=== PATIENT | male | born 2005 | race Caucasian/White ===

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

== ENCOUNTER 2023-04-21 08:39 | Emergency (ER) | payer BC, SELFPAY ==
[2023-04-21 08:52] VITALS: BP 126/95; PULSE 80; RESP 18; TEMP 36.7; O2SAT 97; BMI 23.1
--- NOTE | 2023-04-21 09:22 | PC.NURSE ---
When asked about thoughts of suicide pt stated I just want this to go away. Referring to feelings of increased anxiety. Pt states he has thought about suicide but no plan, currently denies feeling suicidal. Father at bedside. Pt states he has had thoughts in the past, but that was a long time ago. History of seeing counselor/psychiatry but not recently.
--- NOTE | 2023-04-21 10:07 | ED_ITS ---
HPI - General Adult General Date Seen: 04/21/23 Chief complaint: Psychiatric Problem/Disorder Stated complaint: Mental health Time Seen by Provider: 04/21/23 10:05 History of Present Illness HPI narrative: 17-year-old male with a history of depression, ADHD, adjustment disorder with mixed anxiety and depression, allergies, migraine headaches. He presents to the ER today for evaluation for feeling unwell. He does have history of depression, anxiety, and a previous history of even feeling suicidal. He is on Lexapro for that. He says he has been doing really well from mental health standpoint for the past few months. He is not really sure why but he has been doing well. He does use ?magic mushrooms? with his friends once in a while, perhaps every few months. He normally lives in [place] but was at home this weekend visiting his family. On Friday he was with his friends and they were using ?magic mushrooms? at about 2:00 p.m. on Friday, about 43 hours prior to arrival. No other substances. No other drugs. No alcohol. He recalls that this was a very intense Trip. His most intense trip that he has ever had. He says ?I was not ready for it. ? Since then he has just not been feeling right. He has been having waves of anxiety, palpitations, chest discomfort, and worry. He just does not feel good. He has had poor appetite. No nausea or vomiting. No diarrhea. No headache. He is feeling anxious and unable to focus since taking the mushrooms. Sometimes feeling shaky and chest pressure, sometimes having blurry vision. He is not depressed or suicidal. He just does not like the way he feels. He says he will not take ?magic mushrooms anymore.. Related Data Previous Rx's Medication Instructions Recorded dextroamphetamine-amphetamine ER 20 mg (2 x 10 mg) PO QDAY #60 caps 01/02/23 10 mg 24hr capsule,extend release escitalopram oxalate 20 mg tablet 20 mg PO QDAY #90 tabs 03/19/23 lorazepam 1 mg tablet (Ativan) 1 mg PO TID PRN #7 tabs 04/21/23 Allergies Allergy/AdvReac Type Severity Reaction Status Date / Time No Known Allergies Allergy Verified 09/05/22 10:31 [facility] Medical History Overweight ?E66.3 - Overweight (ICD-10) Migraine (03/12/12) ?G43.909 - Migraine, unspecified, not intractable, without status migrainosus (ICD-10) Concussion ?S06.0X9A - Concussion with loss of consciousness of unspecified duration, initial encounter (ICD-10) Adolescent depression ?F32.A - Depression, unspecified (ICD-10) Social History Smoking Status: Never smoker Do you use any of these nicotine containing products: None Second hand tobacco smoke exposure: No How often do you have a drink containing alcohol: never AUDIT-C Alcohol total score: 0 Non-prescribed substance use: denies use and other Non-prescribed substance use details: magic mushrooms Little interest or pleasure in doing things: several days Feeling down, depressed, or hopeless: several days service: No Exam Narrative: Exam Narrative: Constitutional: Appears well-developed and well-nourished. Alert. Conversant but sometimes a bit vague about his symptoms. Father is attentively this side.. Overall patient is polite and Non toxic. HENT: Head: Atraumatic. Nose: Nose normal. Mouth/Throat: Oral mucosa is clear and moist. no trismus. Pharynx normal. Tonsils symmetric. No tonsillar enlargement, erythema, or exudate. Eyes: Conjunctivae normal. EOM normal. Pupils equal, round, and reactive to light. No scleral icterus. Neck: Normal range of motion. Neck supple. No tracheal deviation present. Cardiovascular: Normal rate, regular rhythm. No gallop. No friction rub. No murmur heard. Symmetric radial artery pulses Pulmonary/Chest: Effort normal. No stridor. No respiratory distress. No wheezes. No rales. No rhonchi . No tenderness. Abdominal: Soft. Bowel sounds normal. No distension. No mass. No tenderness. No rebound. No guarding. Musculoskeletal: RUE: Normal range of motion. No tenderness. No deformity LUE: Normal range of motion. No tenderness. No deformity RLE: Normal range of motion. No edema. No tenderness. No deformity LLE: Normal range of motion. No edema. No tenderness. No deformity Lymph: No cervical adenopathy. Neurological: Alert and oriented to person, place, and time. Normal strength. CN II-VII intact. No sensory deficit. GCS eye subscore is 4. GCS verbal subscore is 5. GCS motor subscore is 6. Normal coordination Skin: Skin is warm and dry. No rash noted. No pallor. Normal capillary refill. Psychiatric: Somewhat flat affect as an to the room. Vague about his symptoms and just says he does not feel good. I am able to talk to him and get him to open up. It sounds like he had been doing pretty well from mental health standpoint for the past several months. No recent significant depression or anxiety. He is on Lexapro. He does not really know why he has been doing very good, but he certainly been doing well. He took magic mushrooms on Friday, to have fun, with his friends. He has never had a reaction like this before. The drip was much more intense than previously. He is just feeling unwell since then. He has had sometimes blurry vision, sometimes feeling anxious, sometimes up racing feeling in his chest. He just does not feel good. He has had low energy. He was not taking mushrooms attempt to harm self. He is not really feeling depressed or suicidal. He does does not feel good since he took mushrooms. Const: Vital Signs, click to edit/add: Vital Signs - 24 hr 04/21/23 08:52 04/21/23 11:46 04/21/23 14:37 Temperature 98.0 F 98.0 F 99.5 F Pulse Rate [Pulse Oximeter] 80 78 83 Respiratory Rate 18 18 18 Blood Pressure [Ri ght Upper Arm] 126/95 H 115/76 113/67 Pulse Oximetry 97 98 97 Oxygen Delivery Me thod Room Air Room Air Room Air Course Course ED Course: Discussed with [place] [facility]. They advised that most likely this is just after affects from ?magic mushrooms and supportive care with benzos would be indicated. They do note that there has been a slight rise lately in Amania muscarina usage which can cause GI side effects and liver damage. The poison Center and and I agree that that possibility is unlikely but it would be reasonable to check liver function tests just to be sure there is no sign of hepatotoxicity. Vital Signs Vital signs: Initial Vital Signs Temperature 98.0 F 04/21/23 08:52 Temperature Source Temporal Artery Scan 04/21/23 08:52 Pulse Rate 80 04/21/23 08:52 Pulse Rhythm Regular 04/21/23 08:52 Respiratory Rate 18 04/21/23 08:52 Blood Pressure 126/95 H 04/21/23 08:52 Blood Pressure Mean 105 04/21/23 08:52 Blood Pressure Position Supine 04/21/23 08:52 Pulse Oximetry 97 04/21/23 08:52 Oxygen Delivery Method Room Air 04/21/23 08:52 Vital Signs Temperature 98.0 F 04/21/23 08:52 Pulse Rate 80 04/21/23 08:52 Respiratory Rate 18 04/21/23 08:52 Blood Pressure 126/95 H 04/21/23 08:52 Pulse Oximetry 97 04/21/23 08:52 Oxygen Delivery Method Room Air 04/21/23 08:52 Temperature 99.5 F 04/21/23 14:37 Pulse Rate 83 04/21/23 14:37 Respiratory Rate 18 04/21/23 14:37 Blood Pressure 113/67 04/21/23 14:37 Pulse Oximetry 97 04/21/23 14:37 Oxygen Delivery Method Room Air 04/21/23 14:37 Medications Administered Medications: Discontinued Medications Generic Name Dose Route Start Last Admin Trade Name Freq PRN Reason Stop Dose Admin Lorazepam 1 mg 04/21/23 11:08 04/21/23 10:40 Lorazepam 1 Mg Tablet PO 04/21/23 11:09 1 mg ONCE ONE Administration Medical Decision Making MDM Narrative Medical decision making narrative: This is a 17-year-old male presenting to the ER today with his father with concern that he just does not feel well and has been a bit restless, and anhedonic after taking magic mushrooms 2 days ago. He denies any other coingestion such as drugs, alcohol. He does have a pre- existing history of depression anxiety but says that has been very well controlled for the past many months. Here in the ER he is hemodynamically stable but says he does not feel well. We administered Ativan for anxiety and worry and he felt perhaps slightly better. He said he just did not feel like eating and drinking but with encouragement he was able to drink some water. He did not want to eat any solids. Suspect that his symptoms are likely related to his recent magic mushroom ingestion, however typically half life for magic mushrooms would be a few hours, not days. Discussed with [place] [facility]. They agree that likely this is simply after effects from the med mushrooms and they will get better with time. However poison center is concerned about possible inadvertent ingestion of the rhonchi to magic mushrooms. If he took am amanita that could lead to significant vomiting, diarrhea, and liver toxicity. Patient does have a history of magic mushroom use in the past so it seems highly likely that he did not take dony. However we did check metabolic profile to look at LFTs. Transaminases are mildly abnormal, and changed compared to last September. Discussed again with [facility]. They feel that these transaminase elevations are trivial it would not reflect hepatotoxicity from mushroom ingestion. We decided to monitor here in the ER and repeat LFTs. Repeat LFTs are stable to slightly improving. This would suggest that there was no significant hepatotoxicity. No need for hospitalization at this time. Discharge home with his father for supportive care. Precautions for return to the ER reviewed. Prescriptions for Ativan provided. Benzodiazepine precautions reviewed. Lab Data Labs: Lab Results 04/21/23 04/21/23 Range/Units 10:52 14:18 Sodium 136 138 (135-149) mmol/L Potassium 4.4 4.0 (3.6-5.1) mmol/L Chloride 106 102 (96-114) mmol/L Carbon Dioxide 20 25 (20-32) mmol/L Anion Gap 10 11 (7-15) mEq/L BUN 11 10 (5-24) mg/dL Creatinine 0.7 0.8 (0.6-1.2) mg/dL Estimated Creat Clear 196.02 171.52 Estimated GFR 136 131 ml/min Glucose 91 95 (60-115) mg/dL Calcium 9.8 9.6 (8.7-10.8) mg/dL Total Bilirubin 1.5 1.4 (0.1-1.5) mg/dL AST 37 H 35 (12-35) U/L ALT 54 H 55 H (4-50) U/L Alkaline Phosphatase 69 65 (65-260) U/L Total Protein 7.5 7.8 (6.0-8.3) g/dL Albumin 5.1 H 5.1 H (3.3-5.0) g/dL ECG Data Attestation: I personally reviewed and interpreted this ECG as follows: Interpretation: Normal sinus rhythm rate. Seventy-nine. SC 130. QRS axis normal axis. No pathologic Q-waves. ST segment/T wave: No ST segment elevation or depression. QTc: 438 Discharge Plan Discharge Clinical Impression: Hallucinogenic mushrooms use disorder, mild Patient Disposition: Home, Self-Care Condition: Stable Instructions: Polysubstance Use Disorder (ED) Additional Instructions: As we discussed, we suspect that your symptoms are driven by after affects from the mushrooms you took. This may take a few more days to get better. Please be sure to drink plenty fluids and eat enough food to keep her body healthy. If you have worsening symptoms especially worsening nausea, jaundice, abdominal pain, or more episodes of racing heart or chest pain, please come back to the ER right away. Use Ativan if needed for anxiety. Use caution with Ativan because it can cause drowsiness and can be addictive. Prescriptions: New lorazepam [Ativan] 1 mg tablet 1 mg PO TID PRNQty: 7 0RF No Action dextroamphetamine-amphetamine 10 mg capsule,extended release 24hr 20 mg PO QDAY Qty: 60 0RF escitalopram oxalate 20 mg tablet 20 mg PO QDAY Qty: 90 0RF Follow Up/Referrals: Dex Delgado MD [Primary Care Provider] - Stand Alone Forms: [facility] Info Instructions
--- NOTE | 2023-04-21 10:15 | PC.NURSE ---
Physician at bedside. Father also in room.
[2023-04-21] MEDS: LORazepam 1 MG TABLET PO (10:40)
[2023-04-21 11:10] LABS: Albumin* 5.1 g/dL (3.3-5.0); Chloride* 106 mmol/L (96-114); Potassium* 4.4 mmol/L (3.6-5.1); Sodium* 136 mmol/L (135-149)
[2023-04-21 11:12] LABS: Creatinine* 0.7 mg/dL (0.6-1.2); Est. Creatinine Clearance* 196.02; Estimated Glomerular Filt Rate 136 ml/min
[2023-04-21 11:13] LABS: Alanine Aminotransferase* 54 U/L (4-50); Alkaline Phosphatase* 69 U/L (65-260); Anion Gap 10 mEq/L (7-15); Aspartate Amino Transferase* 37 U/L (12-35); Bilirubin Total* 1.5 mg/dL (0.1-1.5); Blood Urea Nitrogen* 11 mg/dL (5-24); Calcium* 9.8 mg/dL (8.7-10.8); Carbon Dioxide* 20 mmol/L (20-32); Glucose* 91 mg/dL (60-115); Total Protein* 7.5 g/dL (6.0-8.3)
[2023-04-21 11:46] VITALS: BP 115/76; PULSE 78; RESP 18; TEMP 36.7; O2SAT 98
--- NOTE | 2023-04-21 11:47 | PC.NURSE ---
Pt drinking juice and water, eating sandwich. States feeling a little less anxious.
--- NOTE | 2023-04-21 12:25 | PC.NURSE ---
Encourage pt to drink fluids, more water and juice given. sandwich in room.
[2023-04-21 14:37] VITALS: BP 113/67; PULSE 83; RESP 18; TEMP 37.5; O2SAT 97
[2023-04-21 14:46] LABS: Albumin* 5.1 g/dL (3.3-5.0); Chloride* 102 mmol/L (96-114); Sodium* 138 mmol/L (135-149)
[2023-04-21 14:49] LABS: Alanine Aminotransferase* 55 U/L (4-50); Alkaline Phosphatase* 65 U/L (65-260); Anion Gap 11 mEq/L (7-15); Aspartate Amino Transferase* 35 U/L (12-35); Bilirubin Total* 1.4 mg/dL (0.1-1.5); Blood Urea Nitrogen* 10 mg/dL (5-24); Carbon Dioxide* 25 mmol/L (20-32); Creatinine* 0.8 mg/dL (0.6-1.2); Est. Creatinine Clearance* 171.52; Estimated Glomerular Filt Rate 131 ml/min; Glucose* 95 mg/dL (60-115); Total Protein* 7.8 g/dL (6.0-8.3)
[2023-04-21 14:50] LABS: Calcium* 9.6 mg/dL (8.7-10.8)
== END 2023-04-21 15:35 | disposition home or self-care (01) ==
PROVIDERS: Emergency Provider Emergency Medicine; PCP Family Medicine
DX: F16.10 Hallucinogen abuse, uncomplicated (principal); T62.0X1A Toxic effect of ingested mushrooms, accidental (unintentional), initial encounter
CPT/HCPCS: 36415; 80053; 93005; 99283; 99284; A9270

== ENCOUNTER 2025-03-03 21:35 | Emergency (ER) | payer OTHER, SELFPAY ==
--- OUTSIDE RECORDS SUMMARY | 2025-01-30 21:38 | XMS_ITS | Encounter Summary ---
Author Organization [facility] Address [address] [place] [address] Care Team Providers Care All Round Butcher Name Role Phone None Reported, Pcp Primary Care Provider Unavail able Reason for Visit * ReasonCommentsPalpitationsPalpitations, shaky, weak and difficulty focusing x 1 hour. Similar episodes in the past but never lasting this long. Encounter Details DateTypeDepartmentCare Team (Latest Contact Info)Goksvwftrww29/23/2025 9:38 PM BUILDING EQUIPMENT OPERATOR - 01/30/2025 11:16 PM [facility]STEmer[facility] [address] [place] [address] Jett Garza M.D., M.S. [address] [place] [phone] Palpitations (Primary Dx); Tremor Discharge Disposition: Home or Self Care Social History Tobacco UseTypesPacks/DayYears UsedDateSmoking Tobacco: Never Tobacco Cessation:Counseling Given: Not Answered Alcohol UseStandard Drinks/WeekCommentsYes6 (1 standard drink = 0.6 oz pure alcohol)Sex and Gender InformationValueDate RecordedSex Assigned at BirthNot on fileLegal BzzMndi8104/12/2016 11:25 AM CSTGender IdentityNot on fileSexual OrientationNot on filedocumented as of this encounter Last Filed Vital Signs Vital SignReadingTime TakenCommentsBlood Eomppxno541/8501/30/2025 11:00 PM BUILDING EQUIPMENT OPERATOR Hlfii089101/30/2025 11:00 PM OTCLnvkkdkdtah50.2 ??C (97.2 ??F)01/30/2025 9:37 PM CSTRespiratory Wqwu645301/30/2025 11:00 PM CSTOxygen Ywytwukdlm36%01/30/2025 11:00 PM CSTInhaled Oxygen Concentration--Weight--Height--Body Mass Index--documented in this encounter Functional Status * Vital SignsQuestionAnswerDate of AssessmentAuthorRichmond Agitation Sedation Scale (RASS) 11:11 PM Niki Connor R.N. * ED Fall Risk Assessment ToolQuestionAnswerDate of AssessmentAuthorHistory of Falling in Last Three Months Including Since Zswbevxws135/23/2025 9:51 PM Niki Stout R.N.Confusion or Ximdlxftjyfrlb317/23/2025 9:51 PM Niki Connor R.N.Intoxicated or Zwverji940 9:51 PM Niki Connor R.N.Impaired Dniv325 9:51 PM Niki Connor R.N.Mobility Assist Device Vvad128 9:51 PM Niki Connor R.Rachel.Altered Elimination0 01/30/2025 9:51 PM Niki Connor R.N.Fall Risk Iachd282 9:51 PM Niki Connor R.N. * Abuse IndicatorsQuestionAnswerDate of AssessmentAuthorIs there a history, concern, or exposure to physical, emotional, sexual, financial abuse, neglect or domestic violence?No01/30/2025 9:50 PM Niki Connor R.N.Information PxyrkeCmulcqm66/23/2025 9:50 PM Niki Connor R.N. * Additional Fall Risk IndicationQuestionAnswerDate of AssessmentAuthor Clinically assessed at higher fall risk?01/30/2025 9:51 PM Niki Connor R.N. * Pain AssessmentQuestionAnswerDate of AssessmentAuthorPain Score0 - No pain 01/30/2025 9:38 PM Emily Fowler RCelesteN. * Fall Risk Scale and AssessmentsQuestionAnswerDate of AssessmentAuthorFall Risk ScaleED Fall Risk Assessment Tool01/30/2025 9:51 PM Niki Connor RCelesteN. documented as of this encounter Mental Status * [place] Coma ScaleQuestionAnswerEntry DateAuthorEye Ramcmza525/23/2025 10:45 PM Niki Connor, R.N.Best Motor Lwxdwdjt133/23/2025 10:45 PM Niki Connor R.N.Best Verbal Btixqekg296/23/2025 10:45 PM Niki Connor R.N.Nelsy Coma Scale Esyno3482/23/2025 10:45 PM Niki Connor R.N. documented in this encounter Discharge Instructions * Attachments The following attachments cannot be sent through Care Everywhere. * Trembling or Mild Shaking (Tremor): What It Means (Ugandan) * Palpitations Nguw-dx-Aywi (Ugandan) documented in this encounter ED Notes * Jett Garza M.D., M.S. - 01/30/2025 9:52 PM CST SUBJECTIVE CHIEF COMPLAINT/REASON FOR VISIT Palpitations (Palpitations, shaky, weak and difficulty focusing x 1 hour. Similar episodes in the past but never lasting this long.) HISTORY OF PRESENT ILLNESS 19-year-old male past medical history anxiety on Lexapro, presenting for palpitations, feeling tremulous, difficulty concentrating. He has had similar episodes in the past which he attributes to panic attacks. He feels like this feels similar in some aspects but also some aspects different. Did have a few minutes of chest pain midsternal that was very mild in nature when this 1st started but is now completely resolved. Currently denies any pain anywhere or any other symptoms besides still feeling shaky. He describes the palpitations as if his heart is more noticeably beating and a bit faster than usual. REVIEW OF SYSTEMS Per HPI otherwise negative OBJECTIVE Initial Vitals Temperature 01/30/25 2137 36.2 ??C Pulse Rate 01/30/252136 68 Heart Rate 01/30/252144 64 Resp Rate 01/30/252136 20 Blood Pressure 01/30/252136 (!) 144/92 SpO2 01/30/252136 100 % Pain Score 01/30/252137 0 - No pain PHYSICAL EXAMINATION HENT: Head: Normocephalic and atraumatic. Mouth/Throat: Oropharynx is clear and moist. Mucous membranes are moist. Eyes: Conjunctivae and EOM are normal. Neck: No tracheal deviation present. Cardiovascular: Regular rhythm, S1 normal, S2 normal and normal heart sounds. Pulmonary/Chest: Effort normal and breath sounds normal. There is normal air entry. No respiratory distress. He exhibits no retraction. Musculoskeletal: General: Normal range of motion. Cervical back: Normal range of motion. Neurological: Alert and oriented to person, place, and time. ASSESSMENT/PLAN 19-year-old male past medical history as above presenting for tremulousness and palpitations. Will screen for electrolyte abnormality, anemia, and thyroid dysfunction. Differential diagnosis also includes anxiety, will trial 1 mg p.o. Ativan to see if this improves his symptoms. Low suspicion for ACS, PE, myocarditis given currently pain-free. Still offered to obtain workup for these but patient declined given my low suspicion. 11:04 PM BUILDING EQUIPMENT OPERATOR Labs and tests are reassuring: - CBC without leukocytosis or anemia - BMP with normal kidney function, no significant electrolyte derangement - Liver enzymes without significant transaminitis or bilirubinemia - EKG without concerning ST elevation/depression, normal intervals, normal rhythm - TSH unremarkable Patient felt improved s/p Ativan. Recommended PCP f/u. ED Course as of 01/30/252303 Sun Jan 30, 20252234 Still feeling intermittently tremulous. Will give additional 1mg of Ativan. Final Diagnoses: as of 01/30/252303 Palpitations Tremor Jett Garza M.D., M.S. 01/30/252304 DING EQUIPMENT OPERATOR documented in this encounter Plan of Treatment Not on file documented as of this encounter Procedures Procedure NamePriorityDate/TimeAssociated DhcjclrcwHkhybunjQCJSBQL13/23/2025 10:44 PM BUILDING EQUIPMENT OPERATOR CBC WITH DIFFERENTIAL, BSTAT104/01/2024 9:56 PM BUILDING EQUIPMENT OPERATOR THYROID-STIMULATING HORMONE-SENSITIVE (S-TSH)STAT104/01/2024 9:56 PM BUILDING EQUIPMENT OPERATOR VENOUS BLOOD GAS W/COOX, BSTAT104/01/2024 9:56 PM BUILDING EQUIPMENT OPERATOR BASIC METABOLIC PANEL, S/PSTAT104/01/2024 9:56 PM BUILDING EQUIPMENT OPERATOR documented in this encounter Results * ECG 12 Lead (01/30/2025 10:44 PM BUILDING EQUIPMENT OPERATOR)ComponentValueRef RangeTest Method Analysis TimePerformed AtPathologist SignatureVentricular Rate ECG/Ktx29VDI MUSEPR Zpplseoz105rzWQKSPENK Otgxwdet666wgVYMYAZ Jqpnbjbj993etPKFFCSF Interval 392msMUSEP Kscf87neqasgbXUOPD Esej97uoacbmtBJOGB Wave Xnrr22ifgxueoWTIR Specimen (Source)Anatomical Location / LateralityCollection Method / Volume Collection TimeReceived Time01/30/2025 10:44 PM CST01/31/2025 8:02 AM BUILDING EQUIPMENT OPERATOR Impressions MUSE - 01/31/2025 8:02 AM BUILDING EQUIPMENT OPERATOR NORMAL SINUS RHYTHM NORMAL ECG NO PREVIOUS ECGS AVAILABLE Confirmed by Claudio Suazo ([id number]) on 01/31/2025 8:02:20 AM Narrative Procedure Note Claudio Suazo M.D. - 01/31/2025 IMPRESSION: NORMAL SINUS RHYTHM NORMAL ECG NO PREVIOUS ECGS AVAILABLE Confirmed by Claudio Suazo ([id number]) on 01/31/2025 8:02:20 AM Authorizing ProviderResult TypeResult StatusNatsue Garza M.D., M.S.ECG ORDERABLESFinal ResultPerforming OrganizationAddressCity/State/ZIP CodePhone Number MUSE NA * S-TSH (Thyroid-Stimulating Hormone - Sensitive) (01/30/2025 9:56 PM BUILDING EQUIPMENT OPERATOR) ComponentValueRef RangeTest MethodAnalysis TimePerformed AtPathologist SignatureTSH, Sensitive3.00.3 - 4.2 mIU/L104/01/2024 10:31 PM CSTECLRSpecimen (Source)Anatomical Location / LateralityCollection Method / VolumeCollection TimeReceived TimeBlood (Blood, Venous)01/30/2025 9:56 PM CST01/30/2025 10:01 PM BUILDING EQUIPMENT OPERATOR Narrative Authorizing ProviderResult TypeResult StatusNatsue Garza M.D., M.S.LAB BLOOD ADD-ONFinal ResultPerforming OrganizationAddressCity/State/ZIP CodePhone Number [facility] [address] [place] [phone], [facility] in [address] [address] * Basic Metabolic Panel (01/30/2025 9:56 PM BUILDING EQUIPMENT OPERATOR)ComponentValueRef RangeTest MethodAnalysis TimePerformed AtPathologist SignaturePotassium, P3.73.6 - 5.2 mmol/L104/01/2024 10:32 PM CSTECLRSodium, W158831 - 145 mmol/L104/01/2024 10:32 PM CSTECLRChloride, U42026 - 107 mmol/L104/01/2024 10:32 PM CSTECLRBicarbonate, P2422 - 29 mmol/L104/01/2024 10:32 PM CSTECLRAnion Gap, P137 - 15104/01/2024 10:32 PM CSTECLRBUN (Blood Urea Nitrogen), P98 - 24 mg/dL01/30/2025 10:32 PM CSTECLRCreatinine0.820.74 - 1.35 mg/dL01/30/2025 10:32 PM CSTECLREstimated GFR (eGFR)>90>=60 mL/min/BSA01/30/2025 10:32 PM CSTECLRComment: Estimated GFR calculated using the 2020 CKD_EPI creatinine equation. Calcium, Total, P9.88.6 - 10.0 mg/dL01/30/2025 10:32 PM CSTECLRGlucose, P9970 - 140 mg/dL01/30/2025 10:32 PM CSTECLRSpecimen (Source)Anatomical Location / LateralityCollection Method / VolumeCollection TimeReceived TimeBlood (Blood, Venous)01/30/2025 9:56 PM CST01/30/2025 10:01 PM BUILDING EQUIPMENT OPERATOR Narrative Authorizing ProviderResult TypeResult StatusNatsue Garza M.D., M.S.LAB BLOOD ADD-ONFinal ResultPerforming OrganizationAddressCity/State/ZIP CodePhone Number [facility] [address] [place] [phone], [facility] in [place] [address] [place] [phone] * CBC with Differential, Blood (01/30/2025 9:56 PM BUILDING EQUIPMENT OPERATOR)ComponentValueRef Range Test MethodAnalysis TimePerformed AtPathologist OhkpumycuZzrqsytajc79.813.2 - 16.6 g/dL01/30/2025 10:04 PM JGKZUARHxaikfiogj53.638.3 - 48.6 %01/30/2025 10:04 PM CSTECLRErythrocytes5.054.35 - 5.65 x10(12)/L104/01/2024 10:04 PM BUILDING EQUIPMENT OPERATOR XTIREMA08.378.2 - 97.9 fL01/30/2025 10:04 PM CSTECLRRBC Distrib Width12.511.8 - 14.5 %01/30/2025 10:04 PM CSTECLRPlatelet Rwvkf658312 - 317 x10(9)/L 01/30/2025 10:04 PM CSTECLRLeukocytes6.43.4 - 9.6 x10(9)/L104/01/2024 10:04 PM CSTECLRNeutrophils3.511.56 - 6.45 x10(9)/L104/01/2024 10:04 PM CSTECLR Lymphocytes1.820.95 - 3.07 x10(9)/L104/01/2024 10:04 PM CSTECLRMonocytes0.62 0.26 - 0.81 x10(9)/L104/01/2024 10:04 PM CSTECLREosinophils0.370.03 - 0.48 x10(9)/L104/01/2024 10:04 PM CSTECLRBasophils0.050.01 - 0.08 x10(9)/L104/01/2024 10:04 PM CSTECLRSpecimen (Source)Anatomical Location / LateralityCollection Method / VolumeCollection TimeReceived TimeBlood (Blood, Venous)01/30/2025 9:56 PM CST01/30/2025 10:01 PM BUILDING EQUIPMENT OPERATOR Narrative Authorizing ProviderResult TypeResult StatusNatsue Garza M.D., M.S.LAB BLOOD ADD-ONFinal ResultPerforming OrganizationAddressCity/State/ZIP CodePhone Number [facility] [address] [place] [phone], [facility] [address] * Blood Gas with Coox, Venous (01/30/2025 9:56 PM BUILDING EQUIPMENT OPERATOR)ComponentValueRef Range Test MethodAnalysis TimePerformed AtPathologist SignatureSample Site, Venous Oigyqusoo11/23/2025 10:03 PM CSTECLRpO2, Lchzyg45Rtm applicable mm Hg 01/30/2025 10:03 PM CSTECLRpCO2, Vigefm1092 - 51 mm Hg01/30/2025 10:03 PM BUILDING EQUIPMENT OPERATOR ECLRpH, Venous7.367.32 - 7.43 pH01/30/2025 10:03 PM CSTECLRBase Excess, Venous 2Not applicable mmol/L104/01/2024 10:03 PM CSTECLRHCO3, Yzcqyl44Vku applicable mmol/L104/01/2024 10:03 PM CSTECLRHemoglobin, Abjyel09.413.2 - 16.6 g/dL 01/30/2025 10:03 PM LFUQVOKC2Pk, Arhedc53.5Not applicable %01/30/2025 10:03 PM CSTECLRCOHb, Venous0.9<3.0 %01/30/2025 10:03 PM CSTECLRMetHb, Venous1.1<1.5 % 01/30/2025 10:03 PM CSTECLRCtO2, Zghzfx17.9Not Applicable vol %01/30/2025 10:03 PM CSTECLRSpecimen (Source)Anatomical Location / LateralityCollection Method / VolumeCollection TimeReceived TimeBlood (Blood, Venous)01/30/2025 9:56 PM CST01/30/2025 10:01 PM BUILDING EQUIPMENT OPERATOR Narrative Authorizing ProviderResult TypeResult StatusJett Garza M.D., M.S.LAB BLOOD NON ADD-ONFinal ResultPerforming OrganizationAddressCity/State/ZIP CodePhone Number [facility] [address] [place] [address], [facility] [place] [address] [place] [address] documented in this encounter Visit Diagnoses Diagnosis Palpitations- Primary Tremor documented in this encounter Administered Medications Medication OrderMAR ActionAction DateDoseRateSite LORazepam tablet 1 mg (Ativan) 1 mg, oral, Once, On 01/30/25 at 2151, For 1 dose Given01/30/2025 10:00 PM CST1 mg LORazepam tablet 1 mg (Ativan) 1 mg, oral, Once, On 01/30/25 at 2235, For 1 dose Given01/30/2025 10:40 PM CST1 mgdocumented in this encounter Active and Recently Administered Medications Times are shown in BUILDING EQUIPMENT OPERATOR.Medication Order// LORazepam tablet 1 mg (Ativan) (COMPLETED) 1 mg, oral, Once, On 01/30/25 at 2151, For 1 dose * 2200 (Given - Provider: Niki Matson R.N.) LORazepam tablet 1 mg (Ativan) (COMPLETED) 1 mg, oral, Once, On 01/30/25 at 2235, For 1 dose * 2240 (Given - Provider: Niki Matson R.N.) documented in this encounter Care Teams Team MemberRelationshipSpecialtyStart DateEnd Date None Reported, Pcp PCP - GeneralFamily Kdwlrluy20/23/25documented as of this encounter
--- OUTSIDE RECORDS SUMMARY | 2025-03-03 21:37 | XMS_ITS | Clinical Summary ---
Author Organization [facility] Address [address] [place] [address] Care Team Providers Care Market Risk Specialist Name Role Phone Unavailable Primary Care Provider Unavailabl e Source Comments You are receiving this document as you are listed as the primary care provider,follow-up provider, or the patient has been referred to you for consultation.This is in compliance with the Medicare andMedicaid EHR Incentive Program,which states Providers who transition their patient to another setting of careor provider of care or refers their patient to another provider of care shouldprovide summary care record for each transition of care or referral. [facility] Allergies No known active allergies Medications MedicationSigDispense QuantityRefillsLast FilledStart DateEnd DateStatus hydrOXYzine HCl (ATARAX) 25 MG tablet Take 1 Tablet (25 mg) by mouth every 6 hours as needed.5Active escitalopram oxalate (LEXAPRO) 20 MG tablet Take 1 Tablet (20 mg) by mouth.5Active Social History Tobacco UseTypesPacks/DayYears UsedDateSmoking Tobacco: Never Tobacco Cessation:Counseling Given: Not Answered Sex and Gender InformationValueDate RecordedSex Assigned at BirthNot on file Legal SkpTscv5605/02/2024 2:30 PM CSTGender IdentityNot on fileSexual Orientation Not on file Last Filed Vital Signs Vital SignReadingTime TakenCommentsBlood Slmftoqg514/8805/02/2024 3:14 PM PIT LABORER Zwcop8898/23/2025 3:14 PM MJVTulunzddygl37.6 ??C (97.9 ??F)05/02/2024 3:14 PM CSTRespiratory Pcxt1327/ 3:14 PM CSTOxygen Gcpiqgfzew59%05/02/2024 3:14 PM CSTInhaled Oxygen Concentration--Weight--Height--Body Mass Index-- Plan of Treatment Health MaintenanceDue DateLast DoneCommentsHep C Screening (Preventive Services) 2003MenB Immunization Rpawgfwylk41/16/2004HIV Screening (Preventive Services)2019MCV4 Vaccine (2 - 2-dose series)Adult Preventive Visit2021HepB Vaccine (1)3COVID-19 Vaccine ( season)2024Influenza Vaccine (#1)/08/2009, 02/17/2007, 02/27/2006, Additional history existsDTaP/Tdap/Td Vaccine (7 - Tdap)07/16/2025 07/17/2015, 07/18/2008, 07/23/2004, Additional history existsZoster/Shingles Vaccine (1 of 2)2053Hib TklzntdBddgmwrjy40/16/2005, 2003, 2003, Additional history existsPneumococcal VaccineAged Out07/23/2004, 2003, 2003, Additional history existsNo longer eligible based on patient's age to complete this topicHepA PvfidzaAiupvisjp48/11/2009, 02/17/2007 IPV (Polio) YqxkxjrRwijappot82/11/2009, 2003, 2003, Additional history existsHPV BlcowobAgtgzhiet63/22/2017, 07/17/2015 Insurance
--- OUTSIDE RECORDS SUMMARY | 2025-03-03 21:37 | XMS_ITS | Clinical Summary ---
Author Organization [facility] Address [address] [place] [address] Care Team Providers Care Recruiting Administrator Name Role Phone Dex Delgado MD Primary Care Provider [phone] Allergies No known active allergies Medications MedicationSigDispense QuantityRefillsLast FilledStart DateEnd DateStatus escitalopram oxalate (LEXAPRO) 20 mg tablet Indications:Anxiety,Depression, recurrentTake 1 Tablet (20 mg) by mouth once daily in the morning. 90 Tablet 5Active hydrOXYzine HCL (ATARAX) 25 mg tablet Indications:AnxietyTake 1 Tablet (25 mg) by mouth every 6 hours if needed for Anxiety. 50 Tablet 5Active hydrOXYzine HCL (ATARAX) 25 mg tablet Indications:AnxietyTake 1 Tablet (25 mg) by mouth every 6 hours if needed for Anxiety. 50 Tablet Discontinued escitalopram oxalate (LEXAPRO) 20 mg tablet Indications:Anxiety,Depression, recurrentTake 1 Tablet (20 mg) by mouth once daily in the morning. 30 Tablet Discontinued(Reorder (E-cancel not sent)) hydrOXYzine HCL (ATARAX) 25 mg tablet Indications:AnxietyTAKE 1 TABLET (25 MG) BY MOUTH EVERY 6 HOURS IF NEEDED FOR ANXIETY. 50 Tablet Discontinued(Reorder (E-cancel not sent)) Active Problems No known active problems Encounters DateTypeDepartmentCare DvaeDykarrpkgtc09/18/2025Refill [facility] [address] [place] [address] Ana Rey MD Refill Request (Hydroxyzine Hcl)02/16/2025 6:10 PM CSTTelemedicine [facility] [address] [place] [address] Ana Rey MD Medication Kxkbgswylx52/10/2025Travelfrom Last 3 Months Social History Tobacco UseTypesPacks/DayYears UsedDateSmoking Tobacco: NeverSmokeless Tobacco: Never Tobacco Cessation:Counseling Given: Not Answered Alcohol UseStandard Drinks/WeekCommentsNot Currently0 (1 standard drink = 0.6 oz pure alcohol)PHQ-2AnswerDate RecordedPHQ-2 TOTAL NKOLN001Social ConnectionsAnswerDate RecordedDo you often feel lonely or isolated from those around you?Financial Resource StrainAnswerDate RecordedDifficulty of Paying Living Jgkrqqpf095ifficulty of Paying Living ExpensesNot on file 08/15/2023Food InsecurityAnswerDate RecordedDo you worry your food will run out before you are able to buy more?Transportation NeedsAnswerDate RecordedDoes lack of transportation keep you from medical appointments?1 08/15/2023oes lack of transportation keep you from work, meetings or getting things that you need?Housing StabilityAnswerDate RecordedWhat is your housing situation today?UtilitiesAnswerDate RecordedDo you have trouble paying for utilities (for example, heat, electricity, water, phone)?1 08/15/2023Sex and Gender InformationValueDate RecordedSex Assigned at BirthNot on fileLegal JzjSmlx9404/28/2013 4:08 PM CSTGender IdentityNot on fileSexual OrientationNot on file Last Filed Vital Signs Vital SignReadingTime TakenCommentsBlood Riyixrer640/7206 1:35 PM CDT Intxs812308/15/2023 1:35 PM CDTTemperature--Respiratory Rate--Oxygen Sfnvuzrmgb64% 08/15/2023 1:35 PM CDTInhaled Oxygen Concentration--Pchvpb02.4 kg (190 lb 8 oz) 08/15/2023 1:35 PM CDTHeight--Body Mass Index-- Plan of Treatment Health MaintenanceDue DateLast DoneCommentsTetanus cyxugyv4804/25/2014HIV for age 15-65004/25/2018HPV series for age 9-45 (1 - Male 3-dose series)2018 Meningococcal series for age 11-21 (1 - 2-dose series)2019BMI (ht and wt on same day) for age 18+2021Hepatitis C screening for age 18-7904/25/2021 Hepatitis B series for 19+ (1 of 3 - 19+ 3-dose series)3Depression screening for age 12+4COVID-19 vaccine series ( - 2024- season)2024Influenza Vaccine (#1)2024Pneumococcal series for age 6-49Aged OutNo longer eligible based on patient's age to complete this topic Care Teams Team MemberRelationshipSpecialtyStart DateEnd Date Dex Delgado MD [address] [place] [phone] PCP - GeneralFamily Practice08/15/23
--- OUTSIDE RECORDS SUMMARY | 2025-03-03 21:37 | XMS_ITS | Clinical Summary ---
Author Organization [facility] Address [address] [place] [address] Care Team Providers Care Valet Runner Name Role Phone None Reported, Pcp Primary Care Provider Unavail able Source Comments Patient records contain information from all sites at [facility]. For routine questions regarding patient records, call [phone] during business hours, M-F 8:00 AM - 5:00 PM Central Time. Record requests for emergency care only can be directed to [phone] at any time.[facility] Allergies No known active allergies Medications * This document contains information received from the source organization and may not represent a complete record from that organization. MedicationSigDispense QuantityRefillsLast FilledStart DateEnd DateStatus escitalopram (Lexapro) 20 mg tablet Take 1 tablet (20 mg total) by mouth daily. 90 tablet 11:36 AM CST5Active Encounters DateTypeDepartmentCare HkfcLjtufxenchm67/23/2025 9:38 PM BERRY PICKER MACHINE OPERATOR - 01/30/2025 11:16 PM [facility]mer[facility] [place] [address] Jett Garza M.D., M.S. Palpitations (Primary Dx); Tremor Discharge Disposition: Home or Self Carefrom Last 3 Months Immunizations ImmunizationAdministration DatesNext DueDTaP (Daptacel)07/23/2004DTaP / Hep B / IPV (Pediarix)2003,2003,2003DTaP-IPV07/18/2008HepA, Fgudcmgqgyu28/11/2009,02/17/2007Hib (PRP-T) (ACTHIB, HIBERIX)07/23/2004, 2003,2003,2003Influenza Split02/17/2007,02/27/2006,05/08/2005, 01/31/2004,2003MMR07/18/2008,04/27/2004PCV7 (discontinued)07/23/2004, 2003,2003,2003VAR07/18/2008,04/27/2004influenza trivalent LAIV (Nasal) (2 years through 49 years)02/12/2010 Social History Tobacco UseTypesPacks/DayYears UsedDateSmoking Tobacco: Never Tobacco Cessation:Counseling Given: Not Answered Alcohol UseStandard Drinks/WeekCommentsYes6 (1 standard drink = 0.6 oz pure alcohol)Sex and Gender InformationValueDate RecordedSex Assigned at BirthNot on fileLegal ZfgPaew6504/12/2016 11:25 AM CSTGender IdentityNot on fileSexual OrientationNot on file Last Filed Vital Signs Vital SignReadingTime TakenCommentsBlood Qdstukec143/8501/30/2025 11:00 PM BERRY PICKER MACHINE OPERATOR Knfoo140601/30/2025 11:00 PM WSTBnrztdqefyt17.2 ??C (97.2 ??F)01/30/2025 9:37 PM CSTRespiratory Oozc871201/30/2025 11:00 PM CSTOxygen Kvxgorhebl23%01/30/2025 11:00 PM CSTInhaled Oxygen Concentration--Tiuqix13.7 kg (67 lb 10.9 oz)02/12/2010 1:34 PM BERRY PICKER MACHINE OPERATORVital sign result from Clinical Notes.Gmnbwj230 cm (4' 3.58)02/12/2010 1:34 PM BERRY PICKER MACHINE OPERATORVital sign result from Clinical Notes.Body Mass Index17.89 02/12/2010 1:34 PM BERRY PICKER MACHINE OPERATOR Plan of Treatment Health MaintenanceDue DateLast DoneCommentsHIV Vlhvvhwud18/16/2004Hearing Screening during Well Child Visit2003Hepatitis C Idmzuhqze88/16/2004TB Screening during Well Child Visit02/16/96019 week Well Child Check-Up month Well Child Check-Up month Well Child Check-Up month Well Child Check-Up month Well Child Check-Up month Well Child Check-Up month Well Child Check-Up year Well Child Check-Up month Well Child Check-Up year Well Child Check-Up03/25/2006Well Child Check-Up Completed in Past Year year Well Child Check-Up year Well Child Check-Up year Well Child Check-Up year Well Child Check-Up year Well Child Check-Up03/25/201312 year Well Child Check-Up year Well Child Check-Up03/25/201614 year Well Child Check-Up03/25/201715 year Well Child Check-Up03/25/201816 year Well Child Check-Up04/21/2019Meningococcal Vaccine (2 - 2-dose series) year Well Child Check-Up year Well Child Check-Up year Well Child Check-Up year Well Child Check-Up03/25/2023epression Screening (Annual PHQ-2) year Well Child Check-Up03/25/2024[facility] Child Check-Up ([facility])5COVID-19 Vaccine ( season)2024Influenza Vaccine (#1)2009, 02/17/2007, 02/27/2006, Additional history existsDTaP,Tdap,and Td Vaccines (7 - Td or Tdap)605, 07/18/2008, 07/23/2004, Additional history existsHepatitis B SckgtqqvJnqipxmdq26/16/2004, 2003, 2003, Additional history existsPneumococcal vaccine (0-49 years)Aged Out07/23/2004, 2003, 2003, Additional history existsNo longer eligible based on patient's age to complete this topicIPV YynwnewhYpcksneos94/11/2009, 2003, 2003, Additional history existsVaricella RctjgksyFxvbdesla79/11/2009, 04/27/2004HPV AoqziwxwHlxwsfbge14/22/2017, 07/17/2015 Procedures Procedure NamePriorityDate/TimeAssociated XhbosxuxhOvlnfjujEWJWDZA34/23/2025 10:44 PM BERRY PICKER MACHINE OPERATOR THYROID-STIMULATING HORMONE-SENSITIVE (S-TSH)STAT104/01/2024 9:56 PM BERRY PICKER MACHINE OPERATOR BASIC METABOLIC PANEL, S/PSTAT104/01/2024 9:56 PM BERRY PICKER MACHINE OPERATOR CBC WITH DIFFERENTIAL, BSTAT104/01/2024 9:56 PM BERRY PICKER MACHINE OPERATOR VENOUS BLOOD GAS W/COOX, BSTAT104/01/2024 9:56 PM BERRY PICKER MACHINE OPERATOR from Last 3 Months Results * ECG 12 Lead (01/30/2025 10:44 PM BERRY PICKER MACHINE OPERATOR)ComponentValueRef RangeTest Method Analysis TimePerformed AtPathologist SignatureVentricular Rate ECG/Rqi08WLV MUSEPR Zxjskfbm313hgVMLGVNGY Aafwyuhq561kbCDLAZG Tgnzydcv000hdSCUHPKZ Interval 392msMUSEP Pkjj81ophbdinPSIMV Guhw63vtbbrqxUSDXW Wave Bjqz93gndwpmhISTI Specimen (Source)Anatomical Location / LateralityCollection Method / Volume Collection TimeReceived Time01/30/2025 10:44 PM CST01/31/2025 8:02 AM BERRY PICKER MACHINE OPERATOR Impressions MUSE - 01/31/2025 8:02 AM BERRY PICKER MACHINE OPERATOR NORMAL SINUS RHYTHM NORMAL ECG NO PREVIOUS ECGS AVAILABLE Confirmed by Claudio Suazo ([id number]) on 01/31/2025 8:02:20 AM Narrative Procedure Note Claudio Suazo M.D. - 01/31/2025 IMPRESSION: NORMAL SINUS RHYTHM NORMAL ECG NO PREVIOUS ECGS AVAILABLE Confirmed by Claudio Suazo ([id number]) on 01/31/2025 8:02:20 AM Authorizing ProviderResult TypeResult StatusNatsue Garza M.D., M.S.ECG ORDERABLESFinal ResultPerforming OrganizationAddressCity/State/ZIP CodePhone Number MUSE NA * CBC with Differential, Blood (01/30/2025 9:56 PM BERRY PICKER MACHINE OPERATOR)ComponentValueRef Range Test MethodAnalysis TimePerformed AtPathologist IafurvmasWiypurycjz64.813.2 - 16.6 g/dL01/30/2025 10:04 PM KOVMHGULwyxapilpk63.638.3 - 48.6 %01/30/2025 10:04 PM CSTECLRErythrocytes5.054.35 - 5.65 x10(12)/L104/01/2024 10:04 PM BERRY PICKER MACHINE OPERATOR FHHVUYJ31.378.2 - 97.9 fL01/30/2025 10:04 PM CSTECLRRBC Distrib Width12.511.8 - 14.5 %01/30/2025 10:04 PM CSTECLRPlatelet Lccwy995817 - 317 x10(9)/L 01/30/2025 10:04 PM CSTECLRLeukocytes6.43.4 - 9.6 x10(9)/L104/01/2024 10:04 PM CSTECLRNeutrophils3.511.56 - 6.45 x10(9)/L104/01/2024 10:04 PM CSTECLR Lymphocytes1.820.95 - 3.07 x10(9)/L104/01/2024 10:04 PM CSTECLRMonocytes0.62 0.26 - 0.81 x10(9)/L104/01/2024 10:04 PM CSTECLREosinophils0.370.03 - 0.48 x10(9)/L104/01/2024 10:04 PM CSTECLRBasophils0.050.01 - 0.08 x10(9)/L104/01/2024 10:04 PM CSTECLRSpecimen (Source)Anatomical Location / LateralityCollection Method / VolumeCollection TimeReceived TimeBlood (Blood, Venous)01/30/2025 9:56 PM CST01/30/2025 10:01 PM BERRY PICKER MACHINE OPERATOR Narrative Authorizing ProviderResult TypeResult StatusJett Garza M.D., M.S.LAB BLOOD ADD-ONFinal ResultPerforming OrganizationAddressCity/State/ZIP CodePhone Number [facility] [address] [place] [phone], [facility] [address] [address] * S-TSH (Thyroid-Stimulating Hormone - Sensitive) (01/30/2025 9:56 PM BERRY PICKER MACHINE OPERATOR) ComponentValueRef RangeTest MethodAnalysis TimePerformed AtPathologist SignatureTSH, Sensitive3.00.3 - 4.2 mIU/L104/01/2024 10:31 PM CSTECLRSpecimen (Source)Anatomical Location / LateralityCollection Method / VolumeCollection TimeReceived TimeBlood (Blood, Venous)01/30/2025 9:56 PM CST01/30/2025 10:01 PM BERRY PICKER MACHINE OPERATOR Narrative Authorizing ProviderResult TypeResult StatusJett Garza M.D., M.S.LAB BLOOD ADD-ONFinal ResultPerforming OrganizationAddressCity/State/ZIP CodePhone Number [facility] [address] [place] [phone], [facility] [address] [address] * Blood Gas with Coox, Venous (01/30/2025 9:56 PM BERRY PICKER MACHINE OPERATOR)ComponentValueRef Range Test MethodAnalysis TimePerformed AtPathologist SignatureSample Site, Venous Titcqrwcw88/23/2025 10:03 PM CSTECLRpO2, Lqtsmy97Vlh applicable mm Hg 01/30/2025 10:03 PM CSTECLRpCO2, Glijgn3208 - 51 mm Hg01/30/2025 10:03 PM BERRY PICKER MACHINE OPERATOR ECLRpH, Venous7.367.32 - 7.43 pH01/30/2025 10:03 PM CSTECLRBase Excess, Venous 2Not applicable mmol/L104/01/2024 10:03 PM CSTECLRHCO3, Gnidxn20Oyn applicable mmol/L104/01/2024 10:03 PM CSTECLRHemoglobin, Mbcnzy40.413.2 - 16.6 g/dL 01/30/2025 10:03 PM GYXTJCKU7Eo, Zwaapw15.5Not applicable %01/30/2025 10:03 PM CSTECLRCOHb, Venous0.9<3.0 %01/30/2025 10:03 PM CSTECLRMetHb, Venous1.1<1.5 % 01/30/2025 10:03 PM CSTECLRCtO2, Vqgscf32.9Not Applicable vol %01/30/2025 10:03 PM CSTECLRSpecimen (Source)Anatomical Location / LateralityCollection Method / VolumeCollection TimeReceived TimeBlood (Blood, Venous)01/30/2025 9:56 PM CST01/30/2025 10:01 PM BERRY PICKER MACHINE OPERATOR Narrative Authorizing ProviderResult TypeResult StatusNatsue Garza M.D., M.S.LAB BLOOD NON ADD-ONFinal ResultPerforming OrganizationAddressCity/State/ZIP CodePhone Number [facility] [address] [place] [address], [facility] [place] [address] * Basic Metabolic Panel (01/30/2025 9:56 PM BERRY PICKER MACHINE OPERATOR)ComponentValueRef RangeTest MethodAnalysis TimePerformed AtPathologist SignaturePotassium, P3.73.6 - 5.2 mmol/L104/01/2024 10:32 PM CSTECLRSodium, H366193 - 145 mmol/L104/01/2024 10:32 PM CSTECLRChloride, T99360 - 107 mmol/L104/01/2024 10:32 PM CSTECLRBicarbonate, P2422 [...] (Blood, Venous)01/30/2025 9:56 PM CST01/30/2025 10:01 PM BERRY PICKER MACHINE OPERATOR Narrative Authorizing ProviderResult TypeResult StatusNatsue Garza M.D., M.S.LAB BLOOD ADD-ONFinal ResultPerforming OrganizationAddressCity/State/ZIP CodePhone Number [facility] [address] [place] [address], [facility] [place] [address] from Last 3 Months Insurance Care Teams Team MemberRelationshipSpecialtyStart DateEnd Date None Reported, Pcp [facility] Edywfmye67/23/25
[2025-03-03 21:44] VITALS: BP 133/88; PULSE 79; RESP 20; TEMP 36.7; O2SAT 99; BMI 24.3
--- NOTE | 2025-03-03 22:00 | ED_ITS ---
HPI - Animal Bite General Time Seen by Provider: 22:01 Date Seen: 03/03/25 Chief Complaint: Animal Bite Stated Complaint: Dog Bite Face Time Seen by Provider: 03/03/25 22:00 Source: patient and family Mode of arrival: ambulatory Limitations: no limitations History of Present Illness HPI narrative: 19-year-old male brought in by Mom for dog bite. Patient's dog bit his face. Dogs rabies shots are up to date. Unsure last tetanus shot for the patient. Related Data Previous Rx's ?Medication ?Instructions ?Recorded dextroamphetamine-amphetamine ER 20 mg PO QAM #30 caps 04/24/23 20 mg 24hr capsule,extend release escitalopram oxalate 20 mg tablet 20 mg PO QDAY #90 ta bs 04/24/23 hydroxyzine HCl 25 mg tablet 25 - 50 mg (1 - 2 x 25 mg ) PO TID 04/24/23 PRN anxiety #30 tabs lorazepam 1 mg tablet (Ativan) 1 mg PO TID PRN anxiety #7 tabs 08/11/23 Allergies Allergy/AdvReac Type Severity Reaction Status Date / Time No Known Allergies Allergy Verified 03/03/25 21:46 [facility] Medical History Overweight ?E66.3 - Overweight (ICD-10) Migraine (03/12/12) ?G43.909 - Migraine, unspecified, not intractable, without status migrainosus (ICD-10) Concussion ?S06.0X9A - Concussion with loss of consciousness of unspecified duration, initial encounter (ICD-10) Adolescent depression ?F32.A - Depression, unspecified (ICD-10) Social History Smoking Status: Never smoker Do you use any of these nicotine containing products: None Second hand tobacco smoke exposure: No How often do you have a drink containing alcohol: never AUDIT-C Alcohol total score: 0 Non-prescribed substance use: denies use and other Non-prescribed substance use details: magic mushrooms service: No Exam Narrative: Exam Narrative: General: well nourished , NAD Head: Atraumatic and normocephalic ENT: External ears and external nose are normal Eyes: Conjunctiva clear, pupils are equal reactive, external ocular motions are intact Neck: Full spontaneous range of motion of the neck Lungs: No respiratory distress Musculoskeletal: No tenderness or deformity Neurologic: No gross focal neurologic deficits Skin: Small puncture of the left zygomatic arch, abrasions around the left eye, no hyphema or ocular injury Psych: Mood and affect are appropriate Const: Vital Signs, click to edit/add: Vital Signs - 24 hr 03/03/25 21:44 Temperature 98.0 F Pulse Rate [Right Pulse Oximeter] 79 Respiratory Rate 20 Blood Pressure [Ri ght Upper Arm] 133/88 Pulse Oximetry 99 Oxygen Delivery Me thod Room Air Course Course ED Course: Additional records reviewed: 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 Review of prior records shows patient's last tetanus shot was 2015 in this will be updated. Dog's shots are up-to-date. Discussed wound care. None of the lacerations are large enough to require closure. Patient was started on Augmentin stable for discharge. Vital Signs Vital signs: Initial Vital Signs Temperature 98.0 F 03/03/25 21:44 Temperature Source Temporal Artery Scan 03/03/25 21:44 Pulse Rate 79 03/03/25 21:44 Respiratory Rate 20 03/03/25 21:44 Blood Pressure 133/88 03/03/25 21:44 Blood Pressure Mean 103 03/03/25 21:44 Blood Pressure Position Sitting 03/03/25 21:44 Pulse Oximetry 99 03/03/25 21:44 Oxygen Delivery Method Room Air 03/03/25 21:44 Vital Signs Temperature 98.0 F 03/03/25 21:44 Pulse Rate 79 03/03/25 21:44 Respiratory Rate 20 03/03/25 21:44 Blood Pressure 133/88 03/03/25 21:44 Pulse Oximetry 99 03/03/25 21:44 Oxygen Delivery Method Room Air 03/03/25 21:44 Temperature 98.0 F 03/03/25 21:44 Pulse Rate 79 03/03/25 21:44 Respiratory Rate 20 03/03/25 21:44 Blood Pressure 133/88 03/03/25 21:44 Pulse Oximetry 99 03/03/25 21:44 Oxygen Delivery Method Room Air 03/03/25 21:44 Discharge Plan Discharge Clinical Impression: Dog bite Patient Disposition: Home, Self-Care Condition: Stable Instructions: Animal Bite (ED) Additional Instructions: Wash gently with soap and water daily Apply antibiotic ointment as desired Take antibiotics as prescribed Activity Level: Activity as Tolerated Discharge Diet: Regular Prescriptions: No Action escitalopram oxalate 20 mg tablet 20 mg PO QDAY Qty: 90 1RF dextroamphetamine-amphetamine 20 mg capsule,extended release 24hr 20 mg PO QAM Qty: 30 0RF hydroxyzine HCl 25 mg tablet 25 - 50 mg PO TID PRN (Reason: anxiety) Qty: 30 2RF lorazepam [Ativan] 1 mg tablet 1 mg PO TID PRN (Reason: anxiety) Qty: 7 0RF Follow Up/Referrals: Dex Delgado MD [Primary Care Provider, Family Practice] Stand Alone Forms: MyHealth Info Instructions
[2025-03-03] MEDS: TETANUS/DIPHTH/PERTUSSIS 0.5 ML SYRINGE IM (22:24)
[2025-03-03 22:31] VITALS: BP 128/78; PULSE 74; RESP 20; TEMP 36.7; O2SAT 99
== END 2025-03-03 22:33 | disposition home or self-care (01) ==
LOC: ED 22:28
PROVIDERS: Emergency Provider Family Medicine; PCP Family Medicine
DX: S01.85XA Open bite of other part of head, initial encounter (principal); W54.0XXA Bitten by dog, initial encounter
CPT/HCPCS: 90471; 90715; 99283; 99284